=== PATIENT | male | born 1945 | race Caucasian/White ===

== ENCOUNTER 2022-07-24 14:46 | Inpatient (IN) | payer OTHER ==
[~2022-07-24] VITALS: Ht 172.7 cm; Wt 87.1 kg
[2022-07-24 20:27] VITALS: BP 119/92
[2022-07-24 21:13] LABS: Bun/Creatinine Ratio 6.9 (12.0-20.0); Creatinine, Blood 0.73 mg/dL (0.60-1.20); Potassium, Blood 3.3 mmol/L (3.5-5.5)
[2022-07-25] VITALS (18 sets, daily range): BP systolic 114–155; BP diastolic 70–90
--- NOTE | 2022-07-25 04:09 | NUR ---
PT ARRIVED ON UNIT EARLY IN SHIFT. ADMITTED FOR ABCESS ON R. BUTTOCKS. VISUALLY APPEARS RED, FIRM, RAISED AREA OF SKIN ON RIGHT BUTTOCKS. PT REPORTED VERY MILD PAIN THAT IS ALLEVIATED WITH REPOSITIONING. DENIED PAIN MEDICATION. AOX4, VERY PLEASANT, COOPERATIVE WITH CARE. NPO SINCE 3 AM PENDING POSSIBLE PROCEDURE TODAY FOR ABCESS. INDEPENDENT, VERY STEADY ON FEET. CALLS APPROPRIATELY. CALL LIGHT LEFT WITHIN REACH.
[2022-07-25 05:21] LABS: BASOPHILS ABSOLUTE AUTO 0.01 K/mm3 (0.00-0.23); BASOPHILS PERCENT AUTO 0 % (0-2); EOSINOPHILS ABSOLUTE AUTO 0.03 K/mm3 (0.00-0.68); EOSINOPHILS PERCENT AUTO 1 % (0-6); Hematocrit 36.5 % (37.0-53.0); Hemoglobin 12.4 g/dL (13.5-17.5); IMMATURE GRAN ABSOLUTE AUTO 0.03 K/mm3 (0.00-0.10); IMMATURE GRAN PERCENT AUTO 1 % (0-1); LYMPHOCYTES ABSOLUTE AUTO 1.27 K/mm3 (0.84-5.20); LYMPHOCYTES PERCENT AUTO 23 % (21-46); MONOCYTES ABSOLUTE AUTO 0.38 K/mm3 (0.16-1.47); MONOCYTES PERCENT AUTO 7 % (4-13); Mean Corpuscular HGB 33.9 pg (26.0-34.0); Mean Corpuscular Volume 100 fL (80-100); Mean Platelet Volume 10.6 fL (9.1-12.4); NEUTROPHILS ABSOLUTE AUTO 3.74 K/mm3 (1.96-9.15); NEUTROPHILS PERCENT AUTO 69 % (41-73); Platelet Count 255 K/mm3 (150-400); RDW Coefficient Variation 12.7 % (11.7-14.2); Red Blood Cell Count 3.66 M/mm3 (4.30-5.90); White Blood Cell Count 5.46 K/mm3 (4.00-11.30)
[2022-07-25 05:44] LABS: Albumin/Globulin Ratio 0.5 (0.8-1.8); Bilirubin, Total 0.5 mg/dL (0.1-1.0); Bun/Creatinine Ratio 8.5 (12.0-20.0); Calcium, Blood 7.9 mg/dL (8.5-10.1); Creatinine, Blood 0.71 mg/dL (0.60-1.20); Globulin, Blood 3.7 g/dL (2.2-4.0); Potassium, Blood 3.4 mmol/L (3.5-5.5); Total Protein, Blood 5.7 g/dL (6.4-8.2)
--- NOTE | 2022-07-25 12:05 | NUR ---
THE PATIENT WAS BROUGHT TO DAY SURGERY FOR HIS PORCEDURE.
--- NOTE | 2022-07-25 18:25 | NUR ---
SHIFT SUMMARY- PT IS A/O, PLESANT AND COOPERATIVE. HE WENT FOR A PROCEDURE THIS MORNING. HE TRANSFERED TO BED UPON ARRIVING BACK TO THE UNIT. PROCEDURE WENT WELL, JENNI DRAIN IN PLACE. HIS BED IS IN THE LOW POSITION AND CALL LIGHT IS WITIN REACH.
--- NOTE | 2022-07-25 21:15 | NUR ---
ALERT AND ORIENTED. SLIGHT SEROSANGUINOUS DRAINAGE OF GAUZE/ANAL. GAUZE CHANGED. CALL LIGHT IN REACH
[2022-07-26 00:05] VITALS: BP 137/78
[2022-07-26 04:27] VITALS: BP 129/85
--- NOTE | 2022-07-26 05:23 | NUR ---
CITY CONSTABLE SUMMARY VSS. GAUZE DRESSING OF VERENA RECTAL DRAIN CHANGED A FEW TIMES, WITH SEROSANGUINOUS DRAINAGE. MEDICATED FOR PAIN A FEW TIMES WELL - SEE MAR FOR DETAILS. ALERT AND ORIENTED. UP AD NATALEE. NO NOTED S/S ACUTE DISTRESS, OTHER THAN VOICING ANNOYANCE OF PT IN NEARBY ROOM WHO HE SAID KEPT HIM AWAKE WITH LOUD TALKING. CALL LIGHT IN REACH, WILL CONTINUE TO MONITOR.
[2022-07-26 05:33] LABS: BASOPHILS ABSOLUTE AUTO 0.01 K/mm3 (0.00-0.23); BASOPHILS PERCENT AUTO 0 % (0-2); EOSINOPHILS ABSOLUTE AUTO 0.03 K/mm3 (0.00-0.68); EOSINOPHILS PERCENT AUTO 1 % (0-6); Hematocrit 37.5 % (37.0-53.0); Hemoglobin 12.6 g/dL (13.5-17.5); IMMATURE GRAN ABSOLUTE AUTO 0.02 K/mm3 (0.00-0.10); IMMATURE GRAN PERCENT AUTO 0 % (0-1); LYMPHOCYTES ABSOLUTE AUTO 1.32 K/mm3 (0.84-5.20); LYMPHOCYTES PERCENT AUTO 25 % (21-46); MONOCYTES ABSOLUTE AUTO 0.44 K/mm3 (0.16-1.47); MONOCYTES PERCENT AUTO 8 % (4-13); Mean Corpuscular HGB 34.1 pg (26.0-34.0); Mean Corpuscular HGB Conc 33.6 g/dL (31.5-36.5); Mean Corpuscular Volume 101 fL (80-100); Mean Platelet Volume 10.6 fL (9.1-12.4); NEUTROPHILS ABSOLUTE AUTO 3.47 K/mm3 (1.96-9.15); NEUTROPHILS PERCENT AUTO 66 % (41-73); Platelet Count 246 K/mm3 (150-400); RDW Coefficient Variation 12.9 % (11.7-14.2); RDW Standard Deviation 47.7 fL (35.1-46.3); White Blood Cell Count 5.29 K/mm3 (4.00-11.30)
[2022-07-26 05:54] LABS: Bun/Creatinine Ratio 5.3 (12.0-20.0); Calcium, Blood 7.9 mg/dL (8.5-10.1); Creatinine, Blood 0.76 mg/dL (0.60-1.20); Potassium, Blood 3.8 mmol/L (3.5-5.5)
[2022-07-26 07:47] VITALS: BP 140/84
[2022-07-26 16:12] VITALS: BP 160/87
[2022-07-26] MEDS ORDERED: Acetaminophen650 M1 PO (16:54)
[2022-07-26] MEDS ORDERED: AMOCLA875 PO (16:54)
[2022-07-26] MEDS ORDERED: OXAYDO5 M1 PO (16:54)
[2022-07-26] MEDS ORDERED: DOCU100 PO (16:54)
[2022-07-26] MEDS ORDERED: VISBIOME 112.51 EACH PO (16:55)
[2022-07-26] MEDS ORDERED: SENN187 PO (16:55)
--- NOTE | 2022-07-26 17:58 | NUR ---
DISCHARGE INSTRUCTIONS COMPLETED AND DISCUSSED WITH PT EXPRESSING UNDERSTANDING. SCIRPTS FAXED TO [facility]. APPROVED PT TO RECEIVE ANTIBIOITC EARLY PRIOR TO DISCHARGING. EXPRESSING IMPORTANCE OF PT OBTAINING HIS ANTIBIOTIC FROM [facility] IN THE MORNING. TO [facility] VIA W/C WITH FRIEND TRANSPORTING HIM.
== END 2022-07-26 17:25 | disposition home or self-care (01) | DRG 345 ==
LOC: ER 14:46 → MEDS 19:51
PROVIDERS: Surgery; ADMIT Internal Medicine
PROC: 0D9P0ZZ Drainage of Rectum, Open Approach (ICD-10-PCS; principal; 2022-07-25 11:00)
DX: K61.1 Rectal abscess (principal); L02.31 Cutaneous abscess of buttock; L03.317 Cellulitis of buttock; E87.6 Hypokalemia; F10.10 Alcohol abuse, uncomplicated; Z96.659 Presence of unspecified artificial knee joint; Z87.891 Personal history of nicotine dependence
CPT/HCPCS: 36415; 80048; 80053; 85025; 94760; 96365; 99284-25; A9270; J0295; J2250; J2704; J3010; J3480; J7050; J7120